=== PATIENT | male | born 1940 | race Caucasian/White ===

== ENCOUNTER 2017-06-29 10:30 | Outpatient (RCR) | payer MEDICARE, BC, SELFPAY ==
--- NOTE | 2017-04-23 15:41 | HP.PTEVAL_ITS ---
Patient's Visit Information JOSEP RIDER is a 76 year old M referred to Physical Therapy by NISREEN NORMAN with a diagnosis of Spinal fusion, need for gait training. Date of Evaluation: 04/20/17 Physical Therapist: Aston Tran - Visit Plan Frequency: 1-2x /Week Duration: 8 weeks Plan: Start with static and dynamic balance activities progressing to EC and foam exercises. Progress with dynamic gait and balance activities with multiple activities and complexity. - Subjective Subjective: Pt. is here today for his initial evaluation with diagnosis of cervical spine fusion requiring gait training and balance training. He is a plesant 76 y.o. male who is known to this PT. 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 He is now doing well, some tingling in his R hand, but overall well. He is now noticing some difficulty with balance and occassional balance issues with walking. He denies falling, but has stumbled a few times. He has difficulty with washing in the shower, especially with closing his eyes, walking at night, and standing on 1 leg to perform lower body dressing. He is also an avid shooter and reports difficulty with balanace when tracking birds. He does not use and AD, he is independent with all functional mobility. He does occassionally use He denies pain and no neuropathy in BLEs. He does occassionally use furniture to stabilize. He is hopeful to improve stability to complete all hiking and recreational activities with decrease risk for falling. - Objective POSTURE: PT. has wide BI in stance, pt. had normal lumbar positioning. No postural sway in stance. Pt. does have hypombility in his cervical spine resulting in increased lumbar motion to look over shoulders. PALPATION: Pt. has no pain to palpation throughout bilateral LEs. NEUROLOGICAL: Pt. has normal sensation to light and sharp touch of bilaterally. Pt. has 2+ bilateral achilles and patellar DTR. Pt. is able to rise on toes without issues, slightly more difficulty on heels, no visible signs of weakness. ROM: LUMBAR SPINE- WNL no pain. RLE- ankle- DF 12deg, PF 54deg; knee 0-0-124deg; hip- WNL, tight HS. LLE- ankle DF- 10deg, PF 53deg; knee 0-0-126deg; hip- WNL, tight HS. MMT- RLE- ankle- DF 4+/5, PF 5-/5; knee- ext 5-/5, flexion 5-/5; hip- flexion 4+/5, abd 4/ 5, ext 4+/5. LLE- ankle- DF 4+/5, PF 5-/5; knee- ext 4+/5, flexion 4+/5; hip- flexion 5-/5, abd 4+/5, ext 4+/5. GAIT: Pt. is able to ambulate without AD, but does have occassional deviation from path, corrects with stepping stratagies. Pt. reports any LE numbness with gait. Pt. has good tempo with proper step length. STAIRS: Pt. completes with reciprocal pattern with 2 HR both ascending and descending, but does present with slight functional weakness in BLEs with descending. - Balance Scores Functional Gait Assessment Score: 21 % Disability: 30.0000 CATSIB Score (Max score 120 seconds): 60 - Goals Goal 1:: Pt. to be I with HEP. Goal Time Frame: 4-6 Weeks Goal 2:: Pt. to have increased SLS time to 30sec of bilateral LEs. Goal Time Frame: 4-6 Weeks Goal 3:: Pt. to have a score of 23/30 on FGA indicating reduce risk for future falls. Goal Time Frame: 4-6 Weeks Goal 4:: Pt. to be trained in proper balance activities to increase pt carry over to HEP. Goal Time Frame: 4-6 Weeks Goal 5:: Pt. to reports no falls with all hiking, walking and ADLs. Goal Time Frame: 4-6 Weeks Goal 6:: Pt. to report no issues with standing balance throughout shower. Goal Time Frame: 4-6 Weeks - Rehabilitation Potential Physical Therapy Diagnosis: Pt. has signs and symptoms consistent with static and dynamic instability. Pt. would benefit from Pt to increase balance both statically and with gait to reduce risk for future falls. Rehabilitation Potential: Excellent - Anticipated Interventions Patient/Client Instruction: Educate patient on: Condition, Plan of Care, Risk Factors, Benefits of Fitness Program For the Purpose of:: To improve endurance, To improve balance, To improve safety with gait, To assume or resume ADL's, To reduce risk of recurrence, To improve safety, To improve health and function, To foster healthy habits Therapeutic Exercise to Include: Strength training, Power training, Endurance training, Balance training, Coordination, Agility training, Postural training, Flexibilty training, Gait and locomotor training For the Purpose of:: To increase ROM, To improve nutrient delivery to tissue, To increase oxygenation perfusion, To improve muscle performance and motor function, To improve gait and locomotor functions, To improve health of tissue, To decrease soft tissue restriction, To increase flexibility/ROM, To improve endurance, To improve balance, To improve safety with gait Thank you for the opportunity to evaluate your patient. For Medicare and Medicare HMO plans, please review the plan of care and approve it. It will need to be FAXED BACK to us at [phone] for Medicare purposes. Please let me know if there are questions or concerns regarding this plan of care. Physician Signature: Date:
--- NOTE | 2017-06-16 10:13 | HP.PTREVAL_ITS ---
LYNNE COLON JASON It has been my pleasure to treat JOSEP RIDER over the last 7 visits for Spinal fusion, need for gait training. Please see the progress note below for an update on the physical therapy plan of care! Subjective: Pt. reports I am doing better and better. He reports not always doing his exercises for balance, but has been doing more balance like exercises while hunting. Pt. denies falls or issues since last PT session. Objective/Function: Pt. continues to progress as expected with balance activities. FGA- . Pt. reports no falls with walking, he reports some mild difficulty with hiking, but has not fallen. He reports being 50% compliant with HEP at home. SLS R- 28sec, L 33sec. Without UE assistance. Pt. is progressing with balance activities as expected. Pt. is working on change in vision imput with SLS, narrow and gait. Plan Plan: Pt. to be seen x2 more visits, every other week. Pt. to progress with HEP , weaning to independent balance activities. Pt. consents. Goals Goal 1:: Pt. to be I with HEP. Goal Time Frame: 4-6 Weeks Goal Progress: Progressing Goal 2:: Pt. to have increased SLS time to 30sec of bilateral LEs. Goal Time Frame: 4-6 Weeks Goal Progress: Goal Met Goal 3:: Pt. to have a score of 23/30 on FGA indicating reduce risk for future falls. Goal Time Frame: 4-6 Weeks Goal Progress: Progressing Goal 4:: Pt. to be trained in proper balance activities to increase pt carry over to HEP. Goal Time Frame: 4-6 Weeks Goal Progress: Progressing Goal 5:: Pt. to reports no falls with all hiking, walking and ADLs. Goal Time Frame: 4-6 Weeks Goal Progress: Goal Met Goal 6:: Pt. to report no issues with standing balance throughout shower. Goal Time Frame: 4-6 Weeks Goal Progress: Goal Met Anticipated Interventions Patient/Client Instruction: Educate patient on: Condition, Plan of Care, Risk Factors, Benefits of Fitness Program For the Purpose of:: To improve endurance, To improve balance, To improve safety with gait, To assume or resume ADL's, To reduce risk of recurrence, To improve safety, To improve health and function, To foster healthy habits Therapeutic Exercise to Include: Strength training, Power training, Endurance training, Balance training, Coordination, Agility training, Postural training, Flexibilty training, Gait and locomotor training For the Purpose of:: To increase ROM, To improve nutrient delivery to tissue, To increase oxygenation perfusion, To improve muscle performance and motor function, To improve gait and locomotor functions, To improve health of tissue, To decrease soft tissue restriction, To increase flexibility/ROM, To improve endurance, To improve balance, To improve safety with gait Please do not hesitate to contact me at [phone] by phone or Fax: if you have questions or concerns regarding this new plan of care! Sincerely, Aston Tran
--- NOTE | 2017-07-05 08:40 | HP.PTDCSUM ---
HP - PT D/C Summary It has been my pleasure to treat JOSEP RIDER under orders from LYNNE COLON JASON for the diagnosis of Spinal fusion, need for gait training for a total of 8 visit(s). Discharge Date: 06/29/17 Please see the following information for a summary of their discharge status. - Subjective Subjective: Pt. reports being 95% better overall. Pt. reports no recent falls. Pt. reports being HEP compliant. - Objective Objective/Function: FGA 29/30. Pt. reports no falls, he reports being more paige in shower without issues. Pt. is back to hunting and walking through uneven areas without issues. SLS 35sec on RLE, 38sec on LLE. - Goals Goal 1:: Pt. to be I with HEP. Goal Progress: Goal Met Goal 2:: Pt. to have increased SLS time to 30sec of bilateral LEs. Goal Progress: Goal Met Goal 3:: Pt. to have a score of 23/30 on FGA indicating reduce risk for future falls. Goal Progress: Goal Met Goal 4:: Pt. to be trained in proper balance activities to increase pt carry over to HEP. Goal Progress: Goal Met Goal 5:: Pt. to reports no falls with all hiking, walking and ADLs. Goal Progress: Goal Met Goal 6:: Pt. to report no issues with standing balance throughout shower. Goal Progress: Goal Met - Plan Plan: Pt. will be DC from PT to HEP this date. - D/C Information Discharge Comments: Pt. was treated with dynamic and static balance activities. He progressed very well with these. He progressed with all of his testing and is showing all normal levels with overall reduced risk for future falls. He is independent with his program and will be DC to HEP at this point in time. If there are questions or concerns regarding this patient's physical therapy, please feel free to call me at [phone]. Thank you for the referral of this patient. Sincerely, Aston Tran
== END 2017-06-29 19:00 | disposition home or self-care (01) ==
LOC: PT 10:30
PROVIDERS: Family Provider Internal Medicine; PCP Internal Medicine
DX: Z98.1 Arthrodesis status (principal)
CPT/HCPCS: 97162; 97530

== ENCOUNTER → 2017-09-16 08:18 | Outpatient (CLI) | payer MEDICARE, BC, SELFPAY ==
[2017-09-16 09:29] LABS: AST(SGOT) 27 U/L (15-37); Alanine Aminotransfer ALT/SGPT 41 U/L (16-61); Albumin, Serum 3.7 g/dL (3.2-5.0); Alkaline Phosphatase 71 U/L (45-117); Bilirubin, Direct 0.26 mg/dL (0.00-0.30); Cholesterol 109 mg/dL (200); High Density Lipoprotein 45 mg/dL; Protein, Total 6.7 g/dL (6.4-8.2); Triglycerides 44 mg/dL; Very Low Density Lipoprotein 9 mg/dL (5-40)
== END ==
PROVIDERS: Family Provider Internal Medicine; PCP Internal Medicine; Visit Provider Internal Medicine Cardiovascular Disease
DX: I25.810 Atherosclerosis of coronary artery bypass graft(s) without angina pectoris (principal); E78.00 Pure hypercholesterolemia, unspecified
CPT/HCPCS: 36415; 80061; 80076

== ENCOUNTER → 2018-01-26 10:22 | Outpatient (CLI) | payer MEDICARE, BC, SELFPAY ==
--- NOTE | 2018-01-26 10:40 | US_ITS ---
STUDY: THYROID ULTRASOUND REASON FOR EXAM: Male, 77 years old. Nodules TECHNIQUE: Ultrasound evaluation of the thyroid was performed with real-time and static simpson-scale imaging. COMPARISON: December 30, 2016. FINDINGS: RIGHT LOBE: The right lobe of the thyroid gland measures 5.4 x 2.6 x 2.3 cm. There is a heterogeneous echotexture. Inferior stable solid nodule measures 2.0 x 1.5 x 1.7 cm with mild peripheral vascularity. Hyperechoic new solid upper pole nodule measuring 9 x 9 x 7 mm. Hypoechoic new inferior nodule measures 7 x 6 x 5 mm with mild central vascularity. LEFT LOBE: The left lobe of the thyroid gland measures 5.1 x 2.3 x 2.1 cm. There is a heterogeneous echotexture. Inferior relatively stable hypoechoic 1.9 x 1.9 x 1.4 cm solid nodule with peripheral vascularity. Midthyroid 9 x 8 x 13 mm hypoechoic solid nodule. There is a mid thyroid solid possibly new 8 x 6 x 6 nodule with small calcifications. There is a slightly more heterogeneous solid 1.6 x 1.4 x 1 cm nodule with peripheral and central vascularity, relatively stable in size. ISTHMUS: The isthmus measures 5 mm . The regional lymph nodes are normal. US/Thyroid IMPRESSION: Multiple nodules bilaterally of the thyroid with new nodules noted since the previous study. Electronically Signed: Mino Longoria DO at 0:02 EDT Tel [phone], Service support ,
== END ==
PROVIDERS: Family Provider Internal Medicine; PCP Internal Medicine; Referring Provider Internal Medicine; Visit Provider Internal Medicine
DX: E04.1 Nontoxic single thyroid nodule (principal)
CPT/HCPCS: 76536

== ENCOUNTER → 2018-05-24 10:34 | Outpatient (CLI) | payer MEDICARE, BC, SELFPAY ==
--- NOTE | 2018-05-24 10:38 | US_ITS ---
STUDY: THYROID ULTRASOUND REASON FOR EXAM: Male, 77 years old. Thyroid nodule TECHNIQUE: Transverse and longitudinal ultrasound evaluation of the thyroid was performed with real-time and static simpson-scale imaging. COMPARISON: January 26, 2018 FINDINGS: RIGHT LOBE: 5.0 x 2.4 x 2.9 cm. Heterogeneous echotexture. A slightly heterogeneous isoechoic nodule is seen in the lower pole measuring 17.3 x 16.7 x 14.6 mm. This previously measured 19.5 x 14.8 x 16.7 mm. Smaller nodules measuring less than 1 cm were measured in the upper and mid poles. LEFT LOBE: 4.8 x 2.3 x 2.6 cm. Heterogeneous echotexture. A hypoechoic nodule in the lower pole measures 16.6 x 17.7 x 17.3 mm. This previously measured 18.6 x 13.7 x 19.1 mm. A nodule in the midpole measures 15.8 x 10.6 x 12.7 mm. This previously measured 13.7 x 9.2 x 8.0 mm. Smaller nodules measuring less than 1 cm were measured in the upper and mid poles. ISTHMUS: 3.0 mm. The regional lymph nodes are unremarkable. US/Thyroid IMPRESSION: The thyroid is heterogeneous with small nodules consistent with multinodular goiter. The dominant nodules bilaterally are not significantly changed allowing for differences in technical measurements. Electronically Signed: Cydney Dixon MD at 14:35 EST , Service support ,
== END ==
PROVIDERS: Family Provider Internal Medicine; PCP Internal Medicine; Referring Provider Internal Medicine; Visit Provider Internal Medicine
DX: E04.1 Nontoxic single thyroid nodule (principal)
CPT/HCPCS: 76536

== ENCOUNTER → 2018-08-16 08:03 | Outpatient (CLI) | payer MEDICARE, BC, SELFPAY ==
[2018-08-16 08:33] LABS: Absolute Lymphocyte Count 0.88 X10^3/ul (0.83-4.51); Absolute Neutrophil Count 5.1 X10^3/uL (2.0-7.7); Basophil# 0.03 X10^3/uL; Basophil% 0.4 % (0-1); Eosinophil# 0.13 X10^3/uL; Eosinophils% 1.9 % (0-5); Hemoglobin 14.2 g/dl (13.0-16.5); Lymphocyte # 0.88 X10^3/ul (4.0); Lymphocyte % 12.7 % (19-41); Mean Corp Hgb Conc 33.8 g/gl (32-36); Mean Corpuscular Hgb 30.9 pg (27.0-32.0); Mean Corpuscular Volume 91.5 fL (80-94); Mean Platelet Vol. 9.9 fl (6.2-12.0); Monocyte# 0.77 X10^3/uL; Monocyte% 11.1 % (0-10); Neutrophil % 73.6 % (47-70); Platelet Count 174 K/mm3 (150-450); RBC Distribution Width CV 12.6 % (11.6-14.6); RBC Distribution Width SD 41.9 fl (35.1-43.9); Red Blood Count 4.59 M/mm3 (4.6-6.2); White Blood Count 6.9 K/mm3 (4.4-11.0)
[2018-08-16 08:34] LABS: POSITIVE COUNT NO; POSITIVE DIFFERENTIAL NO; POSITIVE MORPHOLOGY NO
[2018-08-16 08:57] LABS: ALB/GLOB Ratio 1.4 RATIO (0.9-2.4); AST(SGOT) 32 U/L (15-37); Alanine Aminotransfer ALT/SGPT 38 U/L (16-61); Albumin, Serum 3.9 g/dL (3.2-5.0); Alkaline Phosphatase 76 U/L (45-117); Anion Gap 4 (5-15); BUN 21 mg/dL (7-18); BUN/Creat Ratio 17.8 RATIO (10-20); Calcium,Total 8.8 mg/dL (8.5-10.1); Chloride 106 mmol/L (98-107); Cholesterol 103 mg/dL (200); Creatinine, Serum 1.18 mg/dL (0.70-1.30); EST Glomerular Filtration Rate 63 mL/min (>60); Est Glom Filt Rate - Afr Amer 77 mL/min (>60); Globulin 2.8 g/dL (2.2-4.2); Glucose 99 mg/dL (74-106); High Density Lipoprotein 48 mg/dL; Potassium 4.2 mmol/L (3.5-5.1); Protein, Total 6.7 g/dL (6.4-8.2); Sodium Level 140 mmol/L (136-145); Triglycerides 46 mg/dL; Very Low Density Lipoprotein 9 mg/dL (5-40)
[2018-08-16 09:08] LABS: Vitamin D,25 Hydroxy 39.9 ng/mL (29.95-100.01)
== END ==
PROVIDERS: Family Provider Internal Medicine; PCP Internal Medicine; Referring Provider Internal Medicine; Visit Provider Internal Medicine
DX: I10 Essential (primary) hypertension (principal); J30.2 Other seasonal allergic rhinitis; E55.9 Vitamin D deficiency, unspecified
CPT/HCPCS: 36415; 80053; 80061; 82306; 85025

== ENCOUNTER → 2019-06-14 06:28 | Outpatient (CLI) | payer MEDICARE, BC, SELFPAY ==
[2019-04-27 10:48] VITALS: BMI 29.5
--- NOTE | 2019-06-14 17:05 | STRESSREP ---
Stress Test Report Exercise myocardial perfusion stress test. 79-year-old man with a history of coronary artery bypass surgery. Stress protocol: Resting EKG demonstrates normal sinus rhythm with a rate of 64 bpm and right bundle branch block is noted. The resting blood pressure is 134/90 mmHg. The patient exercised according to regular Zhang protocol for a total duration of 9 minutes. This was however maintained at stage I of the Zhang protocol. The maximum heart rate attained was 142 bpm which was 100% of maximum predicted heart rate the maximum workload was 5.5 metabolic equivalents. The patient maintained sinus rhythm throughout the recording. At rest there were no ST or T wave changes noted to suggest ischemia peak exercise upsloping ST changes only were noted with no meet the criteria for ischemia. No clinical angina was noted the test was terminated due to the target heart rate being achieved. The resting blood pressure was 134/90 with a peak blood pressure of 200/84 mmHg. The rate-pressure product was 28,200. Myocardial perfusion protocol. 11.0 mCi of technetium 99m sestamibi was injected at rest. The patient exercised according to regular Zhang protocol for a total duration of 9 minutes. At peak exercise 33.0 mCi of technetium 99m sestamibi was injected stress images were obtained stress and rest images were reconstructed and compared in the short axis vertical long horizontal long axis. Gated images were also obtained Perfusion SPECT analysis: Review of the stress images demonstrate normal uptake of tracer noted in all areas of the myocardium the resting images similar demonstrate normal uptake of tracer noted in all areas of the myocardium. No areas of reversibility are noted suggest ischemia no previous infarct is noted. Gated SPECT analysis: The gated ejection fraction is noted to be 68%. Conclusion: Normal exercise myocardial perfusion stress test at a moderate workload Preserved ejection fraction
== END ==
PROVIDERS: PCP Internal Medicine; Referring Provider Internal Medicine Cardiovascular Disease; Visit Provider Internal Medicine Cardiovascular Disease
DX: Z95.1 Presence of aortocoronary bypass graft (principal)
CPT/HCPCS: 78452; 93017; A9500; A4216

== ENCOUNTER → 2019-08-23 08:57 | Outpatient (CLI) | payer MEDICARE, BC, SELFPAY ==
[2019-04-27 10:48] VITALS: BMI 29.5
--- NOTE | 2019-08-23 09:05 | CDU_ITS ---
Reason For Study: Carotid stenosis Rt. Velocities/BP Lt. Velocities/BP Prox CCA 93/14.7 cm/sec. Prox CCA 94.8/19 cm/sec. Mid CCA 83.9/13.4 cm/sec. Mid CCA 81.6/17.9 cm/sec. Dist CCA 74.7/16 cm/sec. Dist CCA 79.4/16.8 cm/sec. Prox ICA 66.9/14.7 cm/sec. Prox ICA 99.2/29.8 cm/sec. Mid ICA 66.9/17.3 cm/sec. Mid ICA 113.8/15.2 cm/sec. Dist ICA 39.4/11 cm/sec. Dist ICA 64.2/16.3 cm/sec. Rt. ICA/CCA = 0.8. Lt. ICA/CCA = 1.4. Prox ECA 126.9/8.2 cm/sec. Prox ECA 100.3/9.1 cm/sec. Rt. Vert. 41.9/12.6 cm/sec. Lt. Vert. 53.2/9 cm/sec. Right Extracranial There is intimal thickening but no significant atherosclerotic plaque noted in the right common carotid artery. There is heterogeneous, irregular atherosclerotic plaque noted in the right internal carotid artery. There is heterogeneous, irregular atherosclerotic plaque noted in the right external carotid artery. Antegrade flow is noted in the right vertebral artery. Left Extracranial There is heterogeneous, smooth atherosclerotic plaque noted in the left common carotid artery. There is heterogeneous, irregular atherosclerotic plaque noted in the left internal carotid artery. There is intimal thickening but no significant atherosclerotic plaque noted in the left external carotid artery. Antegrade flow is noted in the left vertebral artery. Procedure Carotid Duplex [id number]. Exam performed in department. Interpretation Summary Mild (<50%) stenosis right extracranial internal carotid. Mild (<50%) stenosis left extracranial internal carotid. Flow within the vertebral arteries is antegrade bilaterally. Ordering Physician: Karely Perera Referring Physician: Karely Perera Performed By: Janae Batres RVT
== END ==
PROVIDERS: PCP Internal Medicine; Referring Provider Internal Medicine; Visit Provider Internal Medicine
DX: I65.23 Occlusion and stenosis of bilateral carotid arteries (principal)
CPT/HCPCS: 93880

== ENCOUNTER → 2019-10-03 09:18 | Outpatient (CLI) | payer MEDICARE, BC, SELFPAY ==
[2019-04-27 10:48] VITALS: BMI 29.5
--- NOTE | 2019-10-03 09:23 | US_ITS ---
STUDY: THYROID ULTRASOUND REASON FOR EXAM: Male, 79 years old. nodules TECHNIQUE: Ultrasound evaluation of the thyroid was performed with real-time and static simpson-scale imaging. COMPARISON: 05/24/2018 FINDINGS: RIGHT LOBE: The right lobe of the thyroid gland measures 5.5 x 2.7 x 2.2 cm. There is a heterogeneous echotexture. Nodule 1: Interval increase in size of nodule in the posterior right lobe from 17 x 17 x 15 mm to 17 x 22 x 17 mm which is solid hypoechoic wider than tall, smoothly marginated no echogenic foci (TR 4) and ultrasound-guided biopsy is recommended. Nodule 3: No change in the nodule in the lateral right lobe from 7 x 7 x 9 mm and 9 x 6 x 7 mm which is solid and hypoechoic wider than tall smoothly marginated with no echogenic foci (TR 4). LEFT LOBE: The left lobe of the thyroid gland measures 5.8 x 2.2 x 2.1 cm. There is a heterogeneous echotexture. Nodule 4: No change in size of nodule in the inferior left lobe from 17 x 18 x 17 mm and 19 x 19 x 17 mm which is solid hypoechoic wider than tall smoothly marginated with no echogenic foci (TR 4). Nodule 5: Interval increase in size of nodule in the posterior left lobe from 16 x 10 x 13 mm to 20 x 12 x 8 mm which is solid hypoechoic wider than tall ill-defined marginated with no internal echoes (TR 4) ISTHMUS: The isthmus measures 3 mm thick. . The regional lymph nodes are normal. US/Thyroid IMPRESSION: Multinodular thyroid gland with an increase in the size of the largest nodule in the right lobe for which ultrasound-guided biopsy is recommended. Electronically Signed: Madan Dickerson MD at 13:06 EDT Tel , Service support ,
== END ==
PROVIDERS: PCP Internal Medicine; Referring Provider Internal Medicine; Visit Provider Internal Medicine
DX: E04.1 Nontoxic single thyroid nodule (principal)
CPT/HCPCS: 76536

== ENCOUNTER → 2019-10-19 11:06 | Outpatient (CLI) | payer MEDICARE, BC, SELFPAY ==
[2019-10-18 14:41] VITALS: BMI 32.5
--- NOTE | 2019-10-18 14:50 | ASPSI_PTH ---
PATIENT: JOSEP RIDER LOC: [facility] U#:[id number] AGE/SX: 84/M ROOM: RE10/19/[address]: Dr. Karely Perera MD : 1940 BED: DIS: SPEC #: [id number] RECD: 10/19/19 12:48 STATUS: AIMEE REQ #: [id number] JALYN: 10/18/19 14:[address]: Rico Hernandez DEPT: CYTOLOGY RECD BY: Shelly Gomez ENTERED: 10/19/19 13:11 SP TYPE: ASP SENDIN OTHR DR: MD Dr. Rico Lemos MD Tissues: A - Thyroid gland, NOS B - Thyroid gland, NOS C - Thyroid gland, NOS D - Thyroid gland, NOS Procedures: Surgery Specimen Level IV Cytospin Fluid Cytology Other Comments: @ Ordering doctor for SUIV edited from to @ by LUIS DANIEL at 10/19/19 1312 @ Ordering doctor for CYSPIN edited from to @ by LUIS DANIEL at 10/19/19 1312 @ Ordering doctor for CYOTHER edited from to @ by LUIS DANIEL at 10/19/19 1312 @ Submitting doctor edited from to @ by LUIS DANIEL at 10/19/19 1312 HEADER OPERATION: FNA bilateral thyroid PRE-OP DIAGNOSIS: Bilateral thyroid nodules TISSUE SUBMITTED: A - Right inferior thyroid 6 slides, B - Right superior thyroid 2 slides, C - Left inferior thyroid 6 slides, D - Left superior thyroid 4 slides DIAGNOSIS CYTOLOGY A. Right inferior thyroid nodule, fine needle aspiration (smears): Adequate for evaluation. Negative, consistent with benign colloid/follicular nodule. Chronic inflammation. B. Right superior thyroid nodule, fine needle aspiration (smears): Adequate for evaluation. Negative, consistent with benign colloid/follicular nodule. Chronic inflammation. C. Left inferior thyroid nodule, fine needle aspiration (smears): Adequate for evaluation. Negative, consistent with benign colloid/follicular nodule. D. Left superior thyroid nodule, fine needle aspiration (smears): Adequate for evaluation. Negative, consistent with benign colloid/follicular nodule. AM:arabella 10/20/19 CYTOLOGY STUDY Slides are reviewed. CYTOLOGY GROSS A - Received are six smears labeled with the patient's name and designated per the requisition as right inferior thyroid. Submitted for staining. B - Received are two smears labeled with the patient's name and designated per the requisition as right superior thyroid. Submitted for staining. C - Received are six smears labeled with the patient's name and designated per the requisition as left inferior thyroid. Submitted for staining. D - Received are four smears labeled with the patient's name and designated per the requisition as left superior thyroid. Submitted for staining. / arabella 10/19/19 TC:5 CPT: 84030 x4
== END ==
PROVIDERS: PCP Internal Medicine; Referring Provider Internal Medicine; Visit Provider Internal Medicine
DX: R00.1 Bradycardia, unspecified (principal); E04.2 Nontoxic multinodular goiter
CPT/HCPCS: 88108; 88161; 88305; 93225; 93226

== ENCOUNTER → 2020-01-31 08:45 | Outpatient (CLI) | payer MEDICARE, BC, SELFPAY ==
[2019-11-14 15:01] VITALS: BMI 32.5
--- NOTE | 2020-01-31 08:50 | RDU_ITS ---
Reason For Study: Renal insufficiency Right Renal Artery Left Renal Artery Right renal artery ostium Left renal artery ostium 105.3/25.6 145.9/42.7 RSV/EDV. PSV/EDV. Right renal artery proximal 148/49 Left renal artery proximal PSV/EDV PSV/EDV. 129/32.1 . Right renal artery mid 161.4/39.6 Left renal artery mid 105.3/25.6 PSV/EDV. PSV/EDV . Right renal artery distal Left renal artery distal 130.4/35.3 115.6/27.9 PSV/EDV. PSV/EDV. Right RAR 1.77. Left RAR 1.43. Right Renal Parenchyma Left Renal Parenchyma Upper Pole Medula 33.3/8.8 PSV/EDV. Left upper pole medulla 26.9/8.2 Right upper pole medulla EDR 0.26 . PSV/EDV . Right upper pole medulla R.I. Left upper pole medulla EDR .30 . 0.74 . Left upper pole medulla R.I. 0.70 . Upper Jossue Cortx 20.9/5.8 PSV/EDV. UP Cortex 14.2/5.4 PSV/EDV. Right upper pole cortex EDR 0.28 . Left upper pole cortex EDR 0.38 . Right upper pole cortex R.I. 0.72 . Left upper pole cortex R.I. 0.62 . Right lower Pole medulla 29.4/9.6 Left lower Pole medulla 25.8/7.6 PSV/EDV . PSV/EDV . Right lower pole medulla EDR 0.33 . Left lower pole medulla EDR 0.30 . Right lower pole medulla R.I. Left lower pole medulla R.I. 0.70 . 0.67 . Lower Pole Cortx 11.5/4.3 PSV/EDV. Lower Pole Cortex 18.6/5.3 PSV/EDV. Left lower pole cortex EDR 0.38 . Right lower pole cortex EDR 0.29 . Left lower pole cortex R.I. 0.62 . Right lower pole cortex R.I. 0.71 . Left Renal Hilar Right Renal Hilar LT Hilar avg 39.2/11.6 PSV/EDV . Right Hilar avg 36/9.1 PSV/EDV. Left hilar acceleration time 60 Right hilar acceleration time 50 m/sec. m/sec. Left Renal Dimensions Right Renal Dimensions Left kidney size 11.05 cm . Right kidney size 10.65 cm . Left cortical dimension 1.46 cm . Right cortical dimension 1.68 cm . Aorta Proximal abdominal aorta 1.81 x 1.81 cm . Proximal abdominal aorta peak systolic velocity is 91.3 cm/sec . Distal abdominal aorta 1.57 x 1.55 cm . Distal abdominal aorta peak systolic velocity is 96.2 cm/sec . Interpretation Summary Dimensions of the intra-abdominal aorta appear normal, without evidence of aneurysmal dilatation. Renal artery velocities are bilaterally normal. Acceleration times are normal bilaterally. Renal- aortic ratios are also bilaterally normal. There is no evidence of hemodynamically significant renal artery stenosis on either side. The right cortical dimension is increased. The left cortical dimension is normal. Kidneys appear normal in size bilaterally. Ordering Physician: Karely Perera Referring Physician: Karely Perera Performed By: Janae Batres RVT and Student
--- NOTE | 2020-01-31 08:50 | CDU_ITS ---
Reason For Study: Carotid stenosis Rt. Velocities/BP Lt. Velocities/BP Prox CCA 85.1/12.1 cm/sec. Prox CCA 98.6/24.9 cm/sec. Mid CCA 82.6/16 cm/sec. Mid CCA 79/15.1 cm/sec. Dist CCA 68.2/13.4 cm/sec. Dist CCA 72.8/16.3 cm/sec. Prox ICA 63/13.4 cm/sec. Prox ICA 121.1/27.9 cm/sec. Mid ICA 53.1/13.5 cm/sec. Mid ICA 102.3/22.5 cm/sec. Dist ICA 99.8/26.2 cm/sec. Dist ICA 71.6/18.8 cm/sec. Rt. ICA/CCA = 1.21. Lt. ICA/CCA = 1.53. Prox ECA 99.5/9.5 cm/sec. Prox ECA 126.6/15.2 cm/sec. Rt. Vert. 42.1/9.1 cm/sec. Lt. Vert. 42.8/10.7 cm/sec. Right Extracranial There is homogeneous, smooth atherosclerotic plaque noted in the right common carotid artery. There is heterogeneous, irregular atherosclerotic plaque noted in the right internal carotid artery. There is heterogeneous, smooth atherosclerotic plaque noted in the right external carotid artery. Antegrade flow is noted in the right vertebral artery. Left Extracranial There is homogeneous, smooth atherosclerotic plaque noted in the left common carotid artery. There is heterogeneous, irregular atherosclerotic plaque noted in the left internal carotid artery. There is intimal thickening but no significant atherosclerotic plaque noted in the left external carotid artery. Antegrade flow is noted in the left vertebral artery. Procedure Carotid Duplex 72728. This is a Carotid Duplex examination using B-mode, color flow and specral Doppler. Exam performed in department. Interpretation Summary Mild (<50%) stenosis right extracranial internal carotid. Mild (<50%) stenosis left extracranial internal carotid. Flow within the vertebral arteries is antegrade bilaterally. Ordering Physician: Karely Perera Referring Physician: Karely Perera Performed By: Janae Batres RVT
--- NOTE | 2020-01-31 10:05 | US_ITS ---
STUDY: RENAL ULTRASOUND - COMPLETE REASON FOR EXAM: Male, 79 years old. Elevated BUN/creatinine TECHNIQUE: Ultrasound evaluation of the kidneys was performed with real-time and static pappas-scale imaging. COMPARISON: None. FINDINGS: RIGHT KIDNEY: Normal location of the right kidney, which is normal in size. The right kidney measures 11.1 x 5.4 x 6.2 cm. There is a normal cortex of the right kidney. The renal cortex measures 1.6 cm. There is no right renal mass or cyst. There are no right renal calculi. There is no right hydronephrosis. DISTAL RIGHT URETER: There is non-visualization of the distal right ureter. There is no demonstrated right ureterovesical junction calculus. There is a visualized right ureteral jet. LEFT KIDNEY: Normal location of the left kidney, which is normal in size. The left kidney measures 12.3 x 5.1 x 5.9 cm. There is a normal cortex of the left kidney. The renal cortex measures 7.5 cm. There is no left renal mass or cyst. There are no left renal calculi. There is no left hydronephrosis. DISTAL LEFT URETER: There is non-visualization of the distal left ureter. There is no demonstrated left ureterovesical junction calculus. There is a visualized left ureteral jet. AORTA: There is no elongation or tortuosity of the abdominal aorta. I.V.C.: The IVC is patent. BLADDER: The distended urinary bladder has a volume of 224.1 ml. The empty urinary bladder has a volume of 12.6 ml. There is a normal wall thickness of the distended urinary bladder. There is no demonstrated mass within the urinary bladder. There are no demonstrated bladder calculi. There is however echogenic debris within the bladder suggesting protein/inflammation Prostate is enlarged with volume of 80 mL US/Kidney and Bladder IMPRESSION: Sonographically normal kidneys and bladder Echogenic debris within the bladder suggests protein/inflammation, consider UA for further evaluation Enlarged prostate Electronically Signed: Neto Dalton MD at 14:38 EDT , Service support ,
== END ==
PROVIDERS: PCP Internal Medicine; Referring Provider Internal Medicine; Visit Provider Internal Medicine
DX: I65.23 Occlusion and stenosis of bilateral carotid arteries (principal); R94.4 Abnormal results of kidney function studies; N40.0 Benign prostatic hyperplasia without lower urinary tract symptoms; N18.9 Chronic kidney disease, unspecified
CPT/HCPCS: 76770; 93880; 93975

== ENCOUNTER 2020-05-22 09:40 | Outpatient (RCR) | payer MEDICARE, BC, SELFPAY ==
[2020-04-25 08:02] VITALS: BMI 32.2
== END 2020-05-22 23:59 ==
LOC: IMMUN 09:40
PROVIDERS: PCP Internal Medicine; Visit Provider Family Medicine
DX: Z23 Encounter for immunization (principal)
CPT/HCPCS: 0011A; 0012A; 91301

== ENCOUNTER 2021-07-15 06:09 | Outpatient (CLI) | payer MEDICARE, BC, SELFPAY ==
--- NOTE | 2021-07-15 14:34 | STRESSREP ---
Stress Test Report Exercise myocardial perfusion stress test. 81-year-old man with a history of coronary artery disease status post coronary bypass surgery. Stress protocol: Resting EKG demonstrates normal sinus rhythm with a rate of 57 bpm premature atrial complexes and a right bundle branch block pattern noted.Resting blood pressure is 140/78 mmHg. The patient exercised according to the regular modified Zhang protocol for total duration of 7 minutes. The maximum heart rate attained was 118 bpm which was 84% of maximum predicted heart rate. The maximum workload was 4.6 metabolic equivalents. At rest there were no ST or T wave changes noted suggest ischemia and at peak exercise upsloping ST changes were noted with did not meet the criteria for ischemia. No clinical angina was noted no chest pain was noted the test was terminated due to leg fatigue. No atrial fibrillation was noted the peak blood pressure was 160/80 mmHg. Myocardial perfusion protocol. 11.1 mCi of technetium 99m sestamibi was injected at rest. Patient exercised according to the modified Zhang protocol and at peak exercise 33.8 mCi of technetium 99m sestamibi was injected stress images were obtained stress and rest images were reconstructed and compared in the short axis vertical long and horizontal long axis. Gated images were also obtained. Perfusion SPECT analysis: Review of the stress images demonstrate normal uptake of tracer noted in all areas of the myocardium. The resting images similarly demonstrate normal uptake of tracer noted in all areas of the myocardium. No areas of reversibility are noted to suggest ischemia. No previous infarct is noted. Gated SPECT analysis: The gated ejection fraction 63%. Conclusion: Exercise myocardial perfusion stress test with no evidence of ischemia at a low to moderate workload. Mild functional aerobic impairment compared to previous Preserved ejection fraction.
== END 2021-07-15 23:59 | disposition home or self-care (01) ==
LOC: CVS 06:10
PROVIDERS: PCP Internal Medicine; Referring Provider Internal Medicine Cardiovascular Disease; Visit Provider Internal Medicine Cardiovascular Disease
DX: I25.10 Atherosclerotic heart disease of native coronary artery without angina pectoris (principal); Z95.1 Presence of aortocoronary bypass graft
CPT/HCPCS: 78452; 93017; A9500; A4216

== ENCOUNTER → 2022-04-15 | Outpatient (CLI) | payer MEDICARE, SELFPAY ==
[2022-04-15 15:03] LABS: PSA,Total - Annual Screen 4.67 ng/mL (0.00-4.00)
== END | disposition home or self-care (01) ==
PROVIDERS: PCP Internal Medicine; Referring Provider Internal Medicine; Visit Provider Internal Medicine
DX: Z12.5 Encounter for screening for malignant neoplasm of prostate (principal)
CPT/HCPCS: 36415; 84153; G0103

== ENCOUNTER → 2022-09-10 | Outpatient (CLI) | payer MEDICARE, BC, SELFPAY ==
--- NOTE | 2022-09-10 14:33 | VDLE_ITS ---
Reason For Study: swelling RIGHT LEFT CFV is compressible, spontaneous, phasic, GSV is normal. competent and demonstrates normal CFV is compressible, spontaneous, competent, augmentation. and demonstrates pulsatile venous flow. Procedure FV is compressible, spontaneous, competent This is a venous duplex using B-mode, color and demonstrates pulsatile venous flow. flow and spectral Doppler. POP V is compressible, spontaneous, competent Exam performed in department. and demonstrates pulsatile venous flow. The exam was diagnostic. T/P Trunk is compressible. A preliminary report was called and/or faxed PTV is compressible. to Dr. Perera. LT PerV is compressible. VL/Venous Duplex US, Unilateral Interpretation Summary Deep veins of the left lower extremity are patent and compressible segmentally. There is no evidence of left lower extremity deep vein thrombosis. Valvular competence appears intac t within the proximal deep venous system on the left . The left great saphenous vein appears patent a nd compressible segmentally. The right common femoral vein is patent and compressible . Pulsati le flow is noted in the left lower extremity deep venous system, which may be due to elevated centr al venous pressure (i.e. congestive heart failure, pulmonary hypertension, etc.). Clinical correla tion is advised. Ordering Physician: Karely Perera Performed By: Charles Casillas RVT
== END | disposition home or self-care (01) ==
LOC: CVS 14:31
PROVIDERS: PCP Internal Medicine; Referring Provider Internal Medicine; Visit Provider Internal Medicine
DX: M79.89 Other specified soft tissue disorders (principal)
CPT/HCPCS: 93971

== ENCOUNTER → 2022-09-28 | Outpatient (CLI) | payer MEDICARE, BC, SELFPAY ==
[2022-09-28 11:23] LABS: BNP,B-Type NATRIURETIC PEPTIDE 160.6 pg/mL (0-100)
[2022-09-28 11:25] LABS: Anion Gap 5 (5-15); BUN 26 mg/dL (7-18); BUN/Creat Ratio 19.4 RATIO (10-20); Calcium,Total 9.1 mg/dL (8.5-10.1); Chloride 104 mmol/L (98-107); Creatinine, Serum 1.34 mg/dL (0.70-1.30); EST Glomerular Filtration Rate 54 mL/min (>60); Est Glom Filt Rate - Afr Amer 66 mL/min (>60); Glucose 103 mg/dL (74-106); Potassium 4.3 mmol/L (3.5-5.1); Sodium Level 138 mmol/L (136-145)
== END | disposition home or self-care (01) ==
PROVIDERS: PCP Internal Medicine; Referring Provider Internal Medicine Cardiovascular Disease; Visit Provider Internal Medicine Cardiovascular Disease
DX: R06.02 Shortness of breath (principal); Z95.1 Presence of aortocoronary bypass graft; Z95.5 Presence of coronary angioplasty implant and graft
CPT/HCPCS: 36415; 80048; 83880

== ENCOUNTER → 2022-10-01 | Outpatient (CLI) | payer MEDICARE, BC, SELFPAY ==
--- NOTE | 2022-10-01 09:57 | ECHOD_ITS ---
Reason For Study: ARRYTHMIA Procedure This was a 2D Doppler, Color Flow transthoracic echocardiogram. Technically difficult study due to poor apical windows. Exam performed in department. Left Ventricle Normal LV size. Left ventricular systolic function is normal. The estimated ejection fraction is 55 %. No regional wall motion abnormalities noted. Right Ventricle Mildly dilated right ventricle. Mild to moderate global right ventricular systolic dysfunction. Atria The left atrium is severely enlarged. The right atrium is severely enlarged. Mitral Valve Normal mitral valve. Tricuspid Valve Normal tricuspid valve. Mild to moderate (1-2+) tricuspid valve insufficiency. Pulmonary artery systolic pressure is 42 mmHg. Aortic Valve Trisinus/trileaflet aortic valve. Mild focal aortic valve calcification. Pulmonic Valve Normal pulmonic valve. Great Vessels Normal aortic root. The pulmonary artery is normal size. The inferior vena cava is dilated. Pericardium/Pleural No pericardial effusion. MMode/2D Measurements & Calculations LVIDd: 4.9 cm IVSd: 1.0 cm LVOT diam: 2.1 cm LVIDs: 3.7 cm LVPWd: 1.2 cm LVOT area: 3.6 cm2 FS: 23.9 % Ao root diam: 3.8 cm LAV(MOD-bp): 88.7 ml LA A4 area: 32.4 cm2 LAV(MOD-bp) Indexed: 42.5 ml/m2 LAV(MOD-sp2): 51.6 ml LAV(MOD-sp4): 114.6 ml LA dimension(2D): 5.5 cm TAPSE: 1.5 cm RA A4 area: 31.3 cm2 Doppler Measurements & Calculations MV E max jose: 92.1 cm/sec MV V2 max: 123.7 cm/sec Ao V2 max: 107.1 cm/sec MV max P.2 mmHg Ao max P.6 mmHg MV V2 mean: 54.6 cm/sec Ao V2 mean: 73.4 cm/sec MV mean P.7 mmHg Ao mean P.5 mmHg MV V2 VTI: 24.1 cm Ao V2 VTI: 21.7 cm MVA(VTI): 1.8 cm2 AV (velocity ratio): 0.56 WARREN(I,D): 2.0 cm2 WARREN(V,D): 2.1 cm2 LV V1 max: 62.7 cm/sec SV(LVOT): 43.2 ml PA V2 max: 99.7 cm/sec LV V1 max P.6 mmHg PA V2 mean: 75.1 cm/sec LV V1 mean P.89 mmHg LV V1 mean: 44.9 cm/sec LV V1 VTI: 12.1 cm TR max jose: 261.5 cm/sec TR max P.3 mmHg ECHO/Echo Complete Interpretation Summary Normal LV size. Left ventricular systolic function is normal. The estimated ejection fraction is 55 %. The left atrium is severely enlarged. The right atrium is severely enlarged. Ordering Physician: Juan Hernandez Referring Physician: Juan Hernandez Performed By: Bonita Higginbotham RCS
== END | disposition home or self-care (01) ==
LOC: CVS 09:55
PROVIDERS: PCP Internal Medicine; Referring Provider Internal Medicine Cardiovascular Disease; Visit Provider Internal Medicine Cardiovascular Disease
DX: I25.10 Atherosclerotic heart disease of native coronary artery without angina pectoris (principal)
CPT/HCPCS: 93306

== ENCOUNTER → 2022-10-05 | Outpatient (CLI) | payer MEDICARE, BC, SELFPAY ==
--- NOTE | 2022-10-05 09:16 | CPS ---
Order changed from 24 hour HM to 48 hour HM per verbal order from Dr Hernandez.
== END | disposition home or self-care (01) ==
PROVIDERS: PCP Internal Medicine; Referring Provider Internal Medicine Cardiovascular Disease; Visit Provider Internal Medicine Cardiovascular Disease
DX: I48.91 Unspecified atrial fibrillation (principal)
CPT/HCPCS: 93225; 93226

== ENCOUNTER → 2022-10-27 | Outpatient (CLI) | payer MEDICARE, BC, SELFPAY ==
--- NOTE | 2022-10-27 17:34 | STRESSREP ---
Stress Test Report Exercise myocardial perfusion stress test. 82-year-old male with a history of congestive heart failure and atrial fibrillation Stress protocol: Resting EKG demonstrates atrial fibrillation with a right bundle branch block and a rate of 51 bpm resting blood pressure is 134/78 mmHg. The patient exercised according to the regular Zhang protocol for a total duration of 4 minutes attaining a maximum heart rate of 125 bpm which was 90% of maximum predicted heart rate; the maximum workload was 7 metabolic equivalents. At rest there were no ST or T wave changes noted to suggest ischemia and at peak exercise upsloping ST changes only were noted which did not meet the criteria for ischemia. No clinical angina was noted the test was terminated due to the target heart rate being achieved/fatigue. The peak blood pressure was 148/92 mmHg. Rate-pressure product was 14,700. Myocardial perfusion protocol. 11.8 mCi of technetium 99m sestamibi was injected at rest. The patient exercised according to regular Zhang protocol for total duration of 4 minutes and at peak exercise 35.4 mCi of technetium 99m sestamibi was injected stress images were obtained stress and rest images were reconstructed in comparing the short axis vertical long and horizontal long axis. Gated images were also obtained. Perfusion SPECT analysis: Review of the stress images demonstrate normal uptake of tracer noted in all areas of the myocardium. The resting images similarly demonstrate normal uptake of tracer noted in all areas of the myocardium. No areas of reversibility are noted to suggest ischemia no previous infarct was noted. Gated SPECT analysis: The gated ejection fraction is 63%. Conclusion: Normal exercise myocardial perfusion stress test at a moderate workload Preserved ejection fraction. Atrial fibrillation noted
== END | disposition home or self-care (01) ==
LOC: CVS 06:22
PROVIDERS: PCP Internal Medicine; Referring Provider Internal Medicine Cardiovascular Disease; Visit Provider Internal Medicine Cardiovascular Disease
DX: I50.9 Heart failure, unspecified (principal); Z95.1 Presence of aortocoronary bypass graft
CPT/HCPCS: 78452; 93017; A9500; A4216

== ENCOUNTER → 2023-01-12 | Outpatient (CLI) | payer MEDICARE, BC, SELFPAY ==
[2023-01-12 14:43] LABS: Anion Gap 7 (5-15); BUN 32 mg/dL (7-18); BUN/Creat Ratio 21.8 RATIO (10-20); Calcium,Total 9.5 mg/dL (8.5-10.1); Chloride 99 mmol/L (98-107); Creatinine, Serum 1.47 mg/dL (0.70-1.30); EST Glomerular Filtration Rate 49 mL/min (>60); Est Glom Filt Rate - Afr Amer 59 mL/min (>60); Glucose 99 mg/dL (74-106); Magnesium 2.3 mg/dL (1.6-2.6); Potassium 3.5 mmol/L (3.5-5.1); Sodium Level 136 mmol/L (136-145)
[2023-01-12 14:44] LABS: BNP,B-Type NATRIURETIC PEPTIDE 155.6 pg/mL (0-100)
== END | disposition home or self-care (01) ==
LOC: LAB 14:06
PROVIDERS: PCP Internal Medicine; Referring Provider Internal Medicine Cardiovascular Disease; Visit Provider Internal Medicine Cardiovascular Disease
DX: R06.02 Shortness of breath (principal)
CPT/HCPCS: 36415; 80048; 83735; 83880

== ENCOUNTER → 2023-01-19 | Outpatient (CLI) | payer MEDICARE, BC, SELFPAY ==
[2023-01-19 14:33] LABS: Anion Gap 5 (5-15); BUN 26 mg/dL (7-18); BUN/Creat Ratio 18.1 RATIO (10-20); Calcium,Total 9.2 mg/dL (8.5-10.1); Chloride 104 mmol/L (98-107); Creatinine, Serum 1.44 mg/dL (0.70-1.30); EST Glomerular Filtration Rate 50 mL/min (>60); Est Glom Filt Rate - Afr Amer 60 mL/min (>60); Glucose 137 mg/dL (74-106); Potassium 4.3 mmol/L (3.5-5.1); Sodium Level 138 mmol/L (136-145)
== END | disposition home or self-care (01) ==
LOC: LAB 13:21
PROVIDERS: PCP Internal Medicine; Referring Provider Nurse Practitioner Gerontology; Visit Provider Nurse Practitioner Gerontology
DX: I50.9 Heart failure, unspecified (principal)
CPT/HCPCS: 36415; 80048

== ENCOUNTER → 2023-04-21 | Outpatient (CLI) | payer MEDICARE, BC, SELFPAY ==
--- NOTE | 2023-04-21 15:31 | MRI_ITS ---
STUDY: MRI BRAIN WITH AND WITHOUT CONTRAST REASON FOR EXAM: Male, 82 years old. Memory change, AMNESIA, RT HAND NUMBNESS TECHNIQUE: Standardized multiplanar fat and water weighted pulse sequences were obtained. IV CLARISCAN 19ML was administered for the contrast portion of the examination. COMPARISON: None. FINDINGS: There is mild cerebral atrophy with widening of the extra-axial spaces and ventricular dilatation. There are a limited number of small white matter hyperintensities, distributed throughout the deep white matter tracts of the cerebral hemispheres, consistent with mild chronic white matter ischemic changes. There is left posterior frontal decreased gradient signal consistent with prior hemorrhage. There is no evidence for recent intracranial ischemia or other cause of cytotoxic edema on diffusion weighted imaging (DWI). Normal bilateral basal ganglia. Normal thalami. There is no extra-axial fluid accumulation. Normal flow voids within the major intracranial circulation suggesting patency by spin echo criteria. Normal venous enhancement. There is no enhancing intra-axial or extra-axial abnormality. Normal sella turcica, pituitary gland, infundibular stalk, optic chiasm and hypothalamus. Normal tectal plate and pineal gland. Normal midbrain, adeel and medulla. Normal cerebellum. Normal basal cisterns. Normal bilateral temporal bones. Normal bilateral internal auditory canals. No demonstrated orbital abnormality, within the constraints of a routine brain study. Normal visualized paranasal sinuses. Normal calvarium and skull base. Normal visualized soft tissue structures. Normal visualized upper cervical spine. MRI/Brain W/WO Contrast IMPRESSION: Involutional changes of the brain, as described above. Electronically Signed: Derick Wagner MD at 20:26 EST ,
[2023-04-21 16:32] LABS: CREATININE FINGERSTICK 1.2 mg/dL (0.70-1.30); EGFR FINGERSTICK > 60.0000 mL/min (>60)
== END | disposition home or self-care (01) ==
LOC: MRI 15:26
PROVIDERS: PCP Internal Medicine; Visit Provider Internal Medicine
DX: R41.3 Other amnesia (principal)
CPT/HCPCS: 70553; A9575

== ENCOUNTER → 2023-12-09 | Outpatient (CLI) | payer MEDICARE, BC, SELFPAY ==
--- NOTE | 2023-12-09 10:17 | VDLE_ITS ---
Reason For Study: Left calf pain RIGHT LEFT CFV is compressible, spontaneous, phasic, GSV is normal. competent and demonstrates normal CFV is compressible, spontaneous, phasic, augmentation. competent, and demonstrates normal Procedure augmentation. This is a venous duplex using B-mode, color FV is compressible, spontaneous, phasic, flow and spectral Doppler. competent and demonstrates normal Exam performed in department. augmentation. A preliminary report was called and/or faxed POP V is compressible, spontaneous, phasic, to Dr. Silva. competent and demonstrates normal augmentation. T/P Trunk is compressible. PTV is compressible. LT PerV is compressible. Large nonvascularized structure is noted in the left calf muscle. VL/Venous Duplex US, Unilateral Interpretation Summary Deep veins of the left lower extremity are patent and compressible segmentally. There is no evidence of left lower extremity deep vein thrombosis. The left great saphenous vein john ears patent and compressible segmentally. Large nonvascularized structure is noted in the left calf muscle. Ordering Physician: Macy Silva Referring Physician: Karely Perera M.D. Performed By: Janae Batres RVT
== END | disposition home or self-care (01) ==
LOC: CVS 10:15
PROVIDERS: PCP Internal Medicine; Referring Provider Internal Medicine; Visit Provider Internal Medicine
DX: M79.662 Pain in left lower leg (principal)
CPT/HCPCS: 93971

== ENCOUNTER → 2024-01-05 | Outpatient (CLI) | payer MEDICARE, BC, SELFPAY ==
--- NOTE | 2024-01-05 07:11 | CT_ITS ---
ACR Level 3 findings have been noted. An addendum which confirms receipt of the report will follow. EXAM: CT LEFT LOWER EXTREMITY WITH INTRAVENOUS CONTRAST CLINICAL INDICATION: LEFT LEG SWELLING TECHNIQUE: Helically acquired images were obtained of the left lower extremity with intravenous contrast. 2-D reformats were performed by the technologist. The examination includes from the left hemipelvis/hip through the left ankle. This CT exam was performed using one or more of the following dose reduction techniques: automated exposure control, adjustment of the mA and/or kV according to patient size, and/or use of iterative reconstruction technique. CONTRAST: IV 100mL [id number] COMPARISON: Left hip and pelvis, 05/26/2011 FINDINGS: BONES/JOINTS: Moderate to severe tricompartmental marginal osteophytosis and articular sclerosis in the knee. Left hip arthroplasty. Degenerative changes in the lower lumbar spine and left SI joint. SOFT TISSUES: There are tracking fluid collections within the fascial compartment of the medial gastrocnemius muscle which may be insinuating contiguous, extending from the knee joint. To the distal one third of the leg, at least 22 cm in length, up to 3.9 cm transverse, and up to 4.3 cm anterior posterior. VASCULATURE: Vascular calcifications. OTHER FINDINGS: Colonic diverticulosis. CT/Extremity Lower WITH Contrast IMPRESSION: Fluid collections in the posterior compartment of the leg most closely associated with the medial gastrocnemius is likely abscess or perhaps hematoma. Recommend orthopedic surgery consultation. Electronically Signed: Garret Lora DO at 0:30 EDT ,
[2024-01-05 07:36] LABS: CREATININE FINGERSTICK < 1.0 mg/dL (0.70-1.30); EGFR FINGERSTICK > 60.0000 mL/min (>60)
== END | disposition home or self-care (01) ==
LOC: CT 07:11
PROVIDERS: PCP Internal Medicine; Referring Provider Internal Medicine; Visit Provider Internal Medicine
DX: R93.6 Abnormal findings on diagnostic imaging of limbs (principal)
CPT/HCPCS: 73701; Q9967

== ENCOUNTER → 2024-02-14 | Outpatient (CLI) | payer MEDICARE, BC, SELFPAY ==
[2024-02-14 18:12] LABS: Vitamin B12 500 pg/mL (211-911)
[2024-02-14 18:30] LABS: Thyroid Stim Hormone (TSH) 0.847 uIU/mL (0.358-3.740)
[2024-02-18 21:07] LABS: Free Kappa Light Chains 17.4 mg/L (3.3-19.4); Free Lambda Light Chains 16.5 mg/L (5.7-26.3); Vitamin B1, Thiamine 150.8 nmol/L (66.5-200.0)
== END | disposition home or self-care (01) ==
PROVIDERS: PCP Internal Medicine; Referring Provider Psychiatry & Neurology Neurology; Visit Provider Psychiatry & Neurology Neurology
DX: F03.90 Unspecified dementia, unspecified severity, without behavioral disturbance, psychotic disturbance, mood disturbance, and anxiety (principal); I10 Essential (primary) hypertension; G62.9 Polyneuropathy, unspecified
CPT/HCPCS: 36415; 82607; 82746; 83883; 84425; 84443

== ENCOUNTER → 2024-06-12 | Outpatient (CLI) | payer MEDICARE, BC, SELFPAY | END | disposition home or self-care (01) | PROVIDERS: PCP Internal Medicine; Referring Provider Internal Medicine; Visit Provider Internal Medicine | DX: R91.8 Other nonspecific abnormal finding of lung field (principal); Z87.891 Personal history of nicotine dependence | CPT/HCPCS: 94060; 94726; 94729 ==

== ENCOUNTER → 2024-06-29 | Outpatient (CLI) | payer MEDICARE, BC, SELFPAY ==
--- NOTE | 2024-06-29 06:49 | CT_ITS ---
PROCEDURE: CHEST WITHOUT CONTRAST 06/29/2024 REASON FOR EXAM: ABNORMAL CXR TECHNIQUE: Chest CT without contrast. Coronal and Sagittal reconstruction series were provided. One or more dose reduction techniques were used (e.g., Automated exposure control, adjustment of the mA and/or kV according to patient size, use of iterative reconstruction technique COMPARISON: 06/01/2024 FINDINGS: Lungs/Pleura:Moderate diffuse peripheral interstitial opacities are present, which are greatest in the lung bases. Mild bibasilar atelectasis is present.There are trace bilateral pleural effusions. Cardiovascular:The heart is enlarged.Extensive coronary artery calcifications are present. There are postoperative changes present, likely of a prior CABG. Mild scattered atherosclerotic calcifications are present in the thoracic aorta and great vessels. The pulmonary arteries are unremarkable. Pericardium:No effusion. Mediastinum:Unremarkable. Lymph nodes:No lymph node enlargement identified on this noncontrast CT. Bones:No acute osseous abnormality.Median sternotomy wires are present. Soft tissues:Unremarkable. Upper abdomen:The gallbladder wall is thickened. There are numerous small gallstones in the gallbladder lumen. A couple of cystic appearing lesions are present in the liver. CT/Chest without Contrast IMPRESSION: 1. Moderate diffuse peripheral interstitial opacities, most likely due to inter stitial edema. Underlying pulmonary fibrotic changes difficult to exclude. 2. Trace bilateral pleural effusions. 3. Cardiomegaly with postoperative changes present, likely a prior CABG. 4. Gallbladder wall thickening with edema and cholelithiasis. An extrinsic cau se of edema is suspected given the pulmonary findings. Acute cholecystitis can be excluded clinically. Reading Location: [id number]
== END | disposition home or self-care (01) ==
LOC: CT 06:44
PROVIDERS: PCP Internal Medicine; Referring Provider Internal Medicine; Visit Provider Internal Medicine
DX: R93.89 Abnormal findings on diagnostic imaging of other specified body structures (principal)
CPT/HCPCS: 71250

== ENCOUNTER → 2024-07-07 | Outpatient (CLI) | payer MEDICARE, BC, SELFPAY ==
--- NOTE | 2024-07-07 09:17 | US_ITS ---
PROCEDURE: ABDOMEN LIMITED 07/07/2024 REASON FOR EXAM: ULTRASOUND LIVER/GB COMPARISON: Abnormal CT scan. FINDINGS: Liver: Coarsened hepatic echotexture with a nodular liver contour suggestive of cirrhosis. Hepatomegaly. The liver measures 18.2 cm. Gallbladder: Multiple echogenic gallstones are identified. Thickened gallbladder wall measuring 7 mm. Common bile duct: Normal measuring 4 mm. Pancreas: Visualized portions are unremarkable. The distal body and tail are obscured by bowel gas. Other: Right kidney is unremarkable. US/Abdomen Limited IMPRESSION: Stone filled gallbladder with thickening of the gallbladder wall measuring 7 mm . Hepatomegaly. Coarsened hepatic echotexture. Reading Location: [place] [id number]
== END | disposition home or self-care (01) ==
PROVIDERS: PCP Internal Medicine; Referring Provider Internal Medicine; Visit Provider Internal Medicine
DX: R93.5 Abnormal findings on diagnostic imaging of other abdominal regions, including retroperitoneum (principal)
CPT/HCPCS: 76705

== ENCOUNTER → 2024-09-19 | Outpatient (CLI) | payer MEDICARE, BC, SELFPAY ==
[2024-09-19 12:22] LABS: Pro- Brain NATRIURETIC PEPTIDE 2127 pg/mL (<=1800)
[2024-09-23 12:08] LABS: Immunoglobulin A 350 mg/dL (61-437); Immunoglobulin E 2175 IU/mL (6-495); Immunoglobulin G 1000 mg/dL (603-1613); Immunoglobulin M 193 mg/dL (15-143)
== END | disposition home or self-care (01) ==
PROVIDERS: PCP Internal Medicine; Referring Provider Internal Medicine Pulmonary Disease; Visit Provider Internal Medicine Pulmonary Disease
DX: J84.10 Pulmonary fibrosis, unspecified (principal)
CPT/HCPCS: 36415; 82784; 82785; 83880

== ENCOUNTER → 2024-09-26 | Outpatient (CLI) | payer MEDICARE, BC, SELFPAY ==
[2024-09-26 12:40] LABS: Absolute Lymphocyte Count 0.79 X10^3/uL (0.83-4.51); Absolute Neutrophil Count 5.2 X10^3/uL (2.0-7.7); Basophil# 0.03 X10^3/uL; Basophil% 0.4 % (0-1); Eosinophil# 0.13 X10^3/uL; Eosinophils% 1.9 % (0-5); Hematocrit 37.5 % (40-54); Hemoglobin 12.3 g/dL (13.0-16.5); Lymphocyte # 0.79 X10^3/ul (0.83-4.51); Lymphocyte % 11.3 % (19-41); Mean Corp Hgb Conc 32.8 g/dL (32-36); Mean Corpuscular Hgb 30.8 pg (27.0-32.0); Mean Platelet Vol. 9.4 fl (6.2-12.0); Monocyte# 0.83 X10^3/uL; Monocyte% 11.8 % (0-10); NRBC Flagged by Analyzer 0 % (0-5); Neutrophil # 5.21 X10^3/uL (2.7-7.7); Neutrophil % 74.2 % (47-70); Platelet Count 210 K/mm3 (150-450); RBC Distribution Width CV 14.6 % (11.6-14.6); RBC Distribution Width SD 51.1 fl (35.1-43.9); Red Blood Count 3.99 M/mm3 (4.6-6.2)
[2024-09-26 12:55] LABS: Erythrocyte Sedimentation Rate 24 mm/hr (0-20)
[2024-09-26 16:35] LABS: Pro- Brain NATRIURETIC PEPTIDE 2375 pg/mL (<=1800); Rubella IgG REAC (Nonreactive)
[2024-09-29 11:08] LABS: ANTINUCLEAR ANTIBODIES DIRECT Negative (Negative); Anti-dsDNA Ab 3 IU/mL (0-9); SJOGREN'S Anti-SS-A test 0.3 AI (0.0-0.9); SJOGREN'S Anti-SS-B test < 0.2 AI (0.0-0.9)
[2024-09-29 15:08] LABS: Angiotensin Convert Enzyme 94 U/L (14-82); Anti-Smooth Muscle ABS 7 Units (0-19); CCP IgG Antibodies 25 units (0-19); Perinuclear Ab (P-ANCA) <1:20 titer (Neg:<1:20)
== END | disposition home or self-care (01) ==
LOC: LAB 11:22
PROVIDERS: PCP Internal Medicine; Referring Provider Internal Medicine Pulmonary Disease; Visit Provider Internal Medicine Pulmonary Disease
DX: J84.10 Pulmonary fibrosis, unspecified (principal)
CPT/HCPCS: 36415; 82164; 83516; 83880; 85025; 85652; 86037; 86038; 86140; 86200; 86225; 86235; 86762

== ENCOUNTER → 2025-02-19 | Outpatient (CLI) | payer MEDICARE, BC, SELFPAY | END | disposition home or self-care (01) | LOC: LABSPEC 09:50 | PROVIDERS: PCP Internal Medicine; Referring Provider Internal Medicine; Visit Provider Internal Medicine | DX: R31.9 Hematuria, unspecified (principal) | CPT/HCPCS: 87077; 87086; 87088; 87186 ==

== ENCOUNTER → 2025-03-06 | Outpatient (CLI) | payer MEDICARE, BC, SELFPAY ==
[2025-03-06 17:43] LABS: Anion Gap 10 (5-15); BUN 29 mg/dL (4-19); BUN/Creat Ratio 18.8 RATIO (10-20); Calcium,Total 9.4 mg/dL (7.6-11.0); Carbon Dioxide 21.4 mmol/L (21.0-32.0); Chloride 105 mmol/L (98-108); Glucose 99 mg/dL (70-99); Magnesium 2.2 mg/dL (1.5-2.2); Potassium 5.7 mmol/L (3.3-5.1); Pro- Brain NATRIURETIC PEPTIDE 3152 pg/mL (<=1800)
== END | disposition home or self-care (01) ==
PROVIDERS: PCP Internal Medicine; Referring Provider Internal Medicine Cardiovascular Disease; Visit Provider Internal Medicine Cardiovascular Disease
DX: R06.02 Shortness of breath (principal); Z95.5 Presence of coronary angioplasty implant and graft
CPT/HCPCS: 36415; 80048; 83735; 83880